=== PATIENT | female | born 1940 | race African-American/Black ===

== ENCOUNTER 2019-09-02 00:26 | Inpatient (IN) | payer MEDICARE, BC ==
[~2019-09-02] VITALS: Ht 152.4 cm; Wt 42.2 kg
[2019-09-02 03:08] LABS: BASOPHILS % 0.9 % (0.0-2.0); HEMATOCRIT. 38.5 % (36.0-48.0); HEMOGLOBIN. 12.6 g/dL (12.0-16.0); LYMPHOCYTES % 35.1 % (20.0-50.0); MEAN CORPUSCULAR HEMOGLOBIN 27.3 pg (28.0-32.0); MEAN CORPUSCULAR VOLUME 83.5 fL (81.0-99.0); MONOCYTES % 8.2 % (2.0-8.0); NEUTROPHILS % 53.8 % (40.0-76.0); PLATELET 230 x1000/uL (130-400); RED BLOOD CELL COUNT 4.61 mill/uL (4.2-5.4); RED CELL DISTRIBUTION WIDTH 16.3 % (11.6-14.6)
[2019-09-02 03:15] LABS: CHLORIDE 109 mEq/L (98-107)
[2019-09-02] MEDS ORDERED: LORAZEPAM 2MG/ML CPJ IV ONE (04:15)
[2019-09-02 05:34] LABS: CLARITY URINE CLEAR (CLEAR); COLOR URINE YELLOW (YELLOW); KETONES URINE NEGATIVE (NEGATIVE); LEUKOCYTE ESTERASE URINE 2+ (NEGATIVE); NITRITE URINE NEGATIVE (NEGATIVE); OCCULT BLOOD URINE NEGATIVE (NEGATIVE); PH URINE 6.5 (4.5-8.0); PROTEIN URINE NEGATIVE (NEGATIVE); SPECIFIC GRAVITY URINE 1.019 (1.005-1.030)
[2019-09-02 05:44] LABS: *AMPHETAMINES SCREEN URINE NEGATIVE (NEGATIVE); *BARBITURATES SCREEN URINE NEGATIVE (NEGATIVE)
[2019-09-02 05:45] LABS: *BENZODIAZEPINES SCREEN URINE NEGATIVE (NEGATIVE); *COCAINE SCREEN URINE NEGATIVE (NEGATIVE); CANNABINOID URINE SCREEN NEGATIVE (NEGATIVE); METHADONE URINE SCREEN NEGATIVE (NEGATIVE); OPIATES URINE SCREEN NEGATIVE (NEGATIVE); PHENCYCLIDINE URINE SCREEN NEGATIVE (NEGATIVE)
[2019-09-02] MEDS: LORAZEPAM 2MG/ML CPJ IV PRN ×2 (08:59→16:58)
[2019-09-02] MEDS ORDERED: ONDANSETRON HCL 4MG/2ML INJ IV PRN (09:15)
[2019-09-02] MEDS ORDERED: ACETAMINOPHEN 325MG TABLET PO PRN (09:15)
[2019-09-02 13:44] VITALS: BP 114/72
[2019-09-02 18:00] VITALS: BP 170/92
[2019-09-02 20:00] VITALS: BP 175/95
[2019-09-02] MEDS ORDERED: LORAZEPAM 2MG/ML CPJ IV NR (20:15)
[2019-09-02] MEDS: AMLODIPINE 5MG TABLET PO SCH (21:32)
[2019-09-03] VITALS: BP 144/93
[2019-09-03 04:00] VITALS: BP 135/69
[2019-09-03] MEDS ORDERED: OLME40TA11 PO (04:31)
[2019-09-03] MEDS ORDERED: DONE10TA36 PO (04:31)
[2019-09-03] MEDS ORDERED: MEMA10TA2 PO (04:31)
[2019-09-03] MEDS ORDERED: ROSU20TA2 PO (04:31)
[2019-09-03 08:00] VITALS: BP 148/77
[2019-09-03] MEDS: AMLODIPINE 5MG TABLET PO SCH ×2 (09:48→20:36)
[2019-09-03] MEDS: LORAZEPAM 2MG/ML CPJ IV PRN (18:59)
[2019-09-03 20:00] VITALS: BP 102/68
[2019-09-04] VITALS: BP 111/72
[2019-09-04] MEDS: LORAZEPAM 2MG/ML CPJ IV PRN ×2 (01:10→21:00)
[2019-09-04 04:00] VITALS: BP 121/68
[2019-09-04 08:00] VITALS: BP 89/49
[2019-09-04] MEDS: AMLODIPINE 5MG TABLET PO SCH ×2 (09:00→21:03)
[2019-09-04 12:00] VITALS: BP 117/63
[2019-09-04 16:00] VITALS: BP 159/74
[2019-09-04 20:00] VITALS: BP 136/64
[2019-09-05] VITALS: BP 145/88
[2019-09-05 04:00] VITALS: BP 131/65
[2019-09-05 08:00] VITALS: BP 145/59
[2019-09-05] MEDS: AMLODIPINE 5MG TABLET PO SCH ×2 (09:36→21:10)
[2019-09-05 12:00] VITALS: BP 135/84
[2019-09-05 16:00] VITALS: BP 152/71
[2019-09-05 20:00] VITALS: BP 124/69
[2019-09-05] MEDS: LORAZEPAM 2MG/ML CPJ IV PRN (21:09)
[2019-09-06] VITALS: BP 90/47
[2019-09-06 04:00] VITALS: BP 109/57
[2019-09-06 08:00] VITALS: BP 104/65
[2019-09-06] MEDS: AMLODIPINE 5MG TABLET PO SCH (09:00)
[2019-09-06 14:58] VITALS: BP 115/69
[2019-09-06] MEDS ORDERED: DIPHENHYDRAMINE 50MG/ML VIAL IM NR (15:30)
== END 2019-09-06 17:09 | DRG 71 ==
LOC: ER 00:26 → 6EST 05:06 → EDBD 05:06 → EDBEDREQ 05:10 → ENRESERV 11:55
PROVIDERS: ADMIT Internal Medicine; ATTEND Internal Medicine
DX: G93.49 Other encephalopathy (principal); Z68.1 Body mass index [BMI] 19.9 or less, adult; R62.7 Adult failure to thrive; E87.8 Other disorders of electrolyte and fluid balance, not elsewhere classified; F03.90 Unspecified dementia, unspecified severity, without behavioral disturbance, psychotic disturbance, mood disturbance, and anxiety; Z20.828 Contact with and (suspected) exposure to other viral communicable diseases; Z78.1 Physical restraint status; R63.6 Underweight
CPT/HCPCS: 36415; 71045; 80048; 80305; 81003; 82140; 85025; 87635; 97162; 97530; 99285; J1200; J2060; U0003-CS